=== PATIENT | female | born 1975 | race Caucasian/White ===

== ENCOUNTER 2019-11-03 09:25 | Inpatient (IN) | payer MEDICARE, MEDICAID ==
[2019-11-03] MEDS ORDERED: HYDROmorphone 1 MG/ML Syringe IM ONE (09:58)
--- NOTE | 2019-11-03 10:08 | EDM.PDOC ---
ED HPI GENERAL MEDICAL PROBLEM - General Chief Complaint: Lower Extremity Injury/Pain Stated Complaint: [facility] Time Seen by Provider: 11/03/19 09:50 Source of Information: Reports: Patient, RN Notes Reviewed - History of Present Illness INITIAL COMMENTS - FREE TEXT/NARRATIVE: 44 yr old female fell out of bed this AM, severe R distal lower leg and ankle discomfort. Cannot move leg or bear wt due to pain. No other area of known pain or injury. No chest pain or difficulty breathing. 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 She than had "intracerebral blood clot 6 yrs ago" according to mother with further weakness and congnitive decline. She lives with parents from [place]. Hx of seizures. 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: Acetaminophen Right Ankle Pain Score (Numeric/FACES): 7 - Related Data Allergies Allergy/AdvReac Type Severity Reaction Status Date / Time Sulfa (Sulfonamide Allergy Cannot Verified 11/03/19 09:32 Antibiotics) Remember Home Meds: Home Meds Aspirin [Halfprin] 325 mg PO DAILY 08/24/13 [History] Gabapentin [Neurontin] 600 mg PO BID 08/24/13 [History] busPIRone HCl [busPIRone] 15 mg PO BID 08/24/13 [History] levETIRAcetam [Keppra] 500 mg PO BID PRN 08/24/13 [History] Amantadine [Symmetrel] 100 mg PO BID 11/03/19 [History] Baclofen 5 mg PO 1200 11/03/19 [History] Baclofen 10 mg PO BID 11/03/19 [History] Calcium Carbonate/Vitamin D3 [Calcium 600-D3 20Mcg(800 Unit)] 1 tab PO DAILY 11/03/19 [History] Ergocalciferol (Vitamin D2) [Vitamin D2] 1.25 mg PO WEEKLY 11/03/19 [History] FA/Lycopene/Lut/MV,Ca,Iron,Min [Centrum] 1 tab PO DAILY 11/03/19 [History] Felodipine [Felodipine ER] 2.5 mg PO BEDTIME 11/03/19 [History] Omeprazole 20 mg PO DAILY 11/03/19 [History] Potassium Chloride 20 meq PO DAILY 11/03/19 [History] Propranolol [Inderal] 10 mg PO BID 11/03/19 [History] Past Medical History - Past Health History Medical/Surgical History: Denies Medical/Surgical History HEENT History: Reports: Other (See Below) 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 History: Reports: CVA, Seizure 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 - Past Surgical History Head Surgeries/Procedures: Reports: Craniotomy Social & Family History - Tobacco Use Smoking Status *Q: Former Smoker Used Tobacco, but Quit: Yes Month/Year Tobacco Last Used: 2009 - Recreational Drug Use Recreational Drug Use: No Review of Systems - Review of Systems Review Of Systems: See Below Constitutional: Reports: No Symptoms Eyes: Reports: No Symptoms Ears: Reports: No Symptoms Nose: Reports: No Symptoms Mouth/Throat: Reports: No Symptoms Respiratory: Denies: Shortness of Breath Cardiovascular: Denies: Chest Pain GI/Abdominal: Denies: Abdominal Pain, Vomiting Musculoskeletal: Reports: Leg Pain (severe pain RLE distal leg) Skin: Reports: Bruising (mild bruising ant ankle) ED EXAM, GENERAL - Physical Exam Exam: See Below General Appearance: Alert, Moderate Distress Throat/Mouth: Normal Inspection Head: Atraumatic Neck: Supple Respiratory/Chest: No Respiratory Distress, Lungs Clear, Normal Breath Sounds Cardiovascular: Regular Rate, Rhythm GI/Abdominal: Non-Tender Back Exam: No: CVA Tenderness (L), CVA Tenderness (R) Extremities: Leg Pain (severe tenderness distal R lower leg, mild swelling, no visible deformity) Neurological: Alert, Oriented, Other (R sided arm and leg weakness) Skin Exam: Warm, Dry, Ecchymosis (very mild bruising R ant ankle and distal leg), Other (no visible skin disruption) Course - Vital Signs Last Recorded V/S: Last Vital Signs Temp 97.0 F 11/03/19 09:29 Pulse 97 11/03/19 09:29 Resp 16 11/03/19 09:29 BP 132/78 11/03/19 09:29 Pulse Ox 98 11/03/19 09:29 - Orders/Labs/Meds Orders: Active Orders 24 hr Category Date Time Status Peripheral IV Care [RC] . DIRECTED Care 11/03/19 11:37 Active COMPREHENSIVE METABOLIC PN,CMP [CHEM] Stat Lab 11/03/19 11:47 Received INR,PT,PROTHROMBIN TIME [COAG] Stat Lab 11/03/19 11:47 Received Sodium Chloride 0.9% [Saline Flush] Med 11/03/19 11:37 Active 10 ml FLUSH ASDIRECTED PRN Peripheral IV Insertion Adult [OM.PC] Stat Oth 11/03/19 11:37 Ordered Medication Orders Sodium Chloride (Saline Flush) 10 ml FLUSH ASDIRECTED PRN PRN Reason: Keep Vein Open Meds: Medications Generic Name Dose Route Start Last Admin Trade Name Freq PRN Reason Stop Dose Admin Sodium Chloride 10 ml 11/03/19 11:37 Saline Flush FLUSH ASDIRECTED PRN Keep Vein Open Discontinued Medications Generic Name Dose Route Start Last Admin Trade Name Freq PRN Reason Stop Dose Admin Hydromorphone HCl 1 mg 11/03/19 09:58 11/03/19 10:04 Dilaudid IM 11/03/19 09:59 1 mg ONETIME ONE Administration - Re-Assessments/Exams Free Text/Narrative Re-Assessment/Exam: 11/03/19 12:[address] Castañeda, He has reviewed Xrays. He is hoping to treat this nonoperative. We have splinted RLE post long splint. He can see her in 2 to 3 days. The problem is with her prior CVA, R sided severe chronic weakness she is not going to be able to use crutches or walker. Even transferring to and from wheelchair is going to be very difficulty. Therefore we are going to admit to hospital for acute care, she will likely need NH placement. Departure - Departure Time of Disposition: 11:30 Disposition: DC/Tfer to Acute Hospital 02 Condition: Serious Clinical Impression: Unable to ambulate, History of CVA (cerebrovascular accident) Closed tibia fracture Qualifiers: Encounter type: initial encounter Tibia location: shaft Fracture morphology: spiral Fracture alignment: nondisplaced Laterality: right Qualified Code(s): S82.244A - Nondisplaced spiral fracture of shaft of right tibia, initial encounter for closed fracture Fibula fracture Qualifiers: Encounter type: initial encounter Fibula location: proximal - Discharge Information Sepsis Event Note (ED) - Evaluation Sepsis Screening Result: No Definite Risk - Focused Exam Vital Signs: Vital Signs Temp Pulse Resp BP Pulse Ox 11/03/19 09:29 97.0 F 97 16 132/78 98 ED Communication - Discussed Case With (1) Discussed Case With (1): Admitting Provider (Dr Sheridan, decision to admit at about 11:30) - My Orders Last 24 Hours: My Active Orders 11/03/19 11:37 Peripheral IV Care [RC] . DIRECTED Sodium Chloride 0.9% [Saline Flush] 10 ml FLUSH ASDIRECTED PRN Peripheral IV Insertion Adult [OM.PC] Stat 11/03/19 11:47 COMPREHENSIVE METABOLIC PN,CMP [CHEM] Stat INR,PT,PROTHROMBIN TIME [COAG] Stat - Assessment/Plan Last 24 Hours: My Active Orders 11/03/19 11:37 Peripheral IV Care [RC] . DIRECTED Sodium Chloride 0.9% [Saline Flush] 10 ml FLUSH ASDIRECTED PRN Peripheral IV Insertion Adult [OM.PC] Stat 11/03/19 11:47 COMPREHENSIVE METABOLIC PN,CMP [CHEM] Stat INR,PT,PROTHROMBIN TIME [COAG] Stat
--- NOTE | 2019-11-03 10:56 | CR ---
Right tibia and fibula: AP and lateral views of the right tibia and fibula are obtained. Fracture is noted within the distal one third diaphysis of the tibia with mild displacement. Fracture also noted within the proximal fibula with no displacement. Soft tissue swelling is noted. Impression: 1. Tibia and fibular fractures as noted above. 2. Soft tissue swelling. Diagnostic code #3 This report was dictated in MDT
[2019-11-03] MEDS ORDERED: Sodium Chloride 0.9% 10 ML Syringe FLUSH PRN (11:37)
--- NOTE | 2019-11-03 11:39 | PCM.HP.2 ---
H&P History of Present Illness - General Date of Service: 11/03/19 Admit Problem/Dx: Status Post fall and Bone Fractures Source of Information: Patient, Family, Old Records, Provider, RN Notes Reviewed History Limitations: Reports: Physical Impairment - History of Present Illness Initial Comments - Free Text/Narative: This is a 44 yo white female with past medical hx/o CVA with residual right sided weakness, brain bleed status post craniotomy 6 years ago, former smoker, seizure disorder and gait instability who comes to us from home for evaluation of a recent fall. Per patient, she fell out of bed this morning and compliant of right distal lower leg and ankle discomfort. She denies having preceding symptoms. No fever or chills. No seizure or stroke like symptoms. No signs of upper respiratory infections. Her initial work up shows a fairly unremarkable CBC. Her Tibia and fibular x-ray read as tibia and fibular fractures with soft tissue swelling. Her case was discussed with the on-call ortho. Dr. Castañeda determined she was a non surgical candidate. Patient is coming in for medical management and for possible placement. Right Ankle Pain Score (Numeric/FACES): 7 - Related Data Allergies/Adverse Reactions: Allergies Allergy/AdvReac Type Severity Reaction Status Date / Time Sulfa (Sulfonamide Allergy Cannot Verified 11/03/19 13:56 Antibiotics) Remember Home Medications: Home Meds Aspirin [Halfprin] 325 mg PO DAILY 08/24/13 [History] Gabapentin [Neurontin] 600 mg PO BID 08/24/13 [History] busPIRone HCl [busPIRone] 15 mg PO BID 08/24/13 [History] levETIRAcetam [Keppra] 500 mg PO BID PRN 08/24/13 [History] Amantadine [Symmetrel] 100 mg PO BID 11/03/19 [History] Baclofen 5 mg PO 1200 11/03/19 [History] Baclofen 10 mg PO BID 11/03/19 [History] Ergocalciferol (Vitamin D2) [Vitamin D2] 1.25 mg PO WEEKLY 11/03/19 [History] Felodipine [Felodipine ER] 2.5 mg PO BEDTIME 11/03/19 [History] Omeprazole 20 mg PO DAILY 11/03/19 [History] Propranolol [Inderal] 10 mg PO BID 07/14/20 [History] Past Medical History - Past Health History Medical/Surgical History: Denies Medical/Surgical History HEENT History: Reports: Other (See Below) 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 History: Reports: CVA, Seizure 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 - Past Surgical History Head Surgeries/Procedures: Reports: Craniotomy Social & Family History - Tobacco Use Smoking Status *Q: Former Smoker Used Tobacco, but Quit: Yes Month/Year Tobacco Last Used: 2009 - Recreational Drug Use Recreational Drug Use: No H&P Review of Systems - Review of Systems: Review Of Systems: See Below General: Denies: Fever, Chills Pulmonary: Denies: Shortness of Breath, Pleuritic Chest Pain Cardiovascular: Denies: Chest Pain, Palpitations, Dyspnea on Exertion Gastrointestinal: Denies: Abdominal Pain, Nausea, Vomiting Genitourinary: Reports: No Symptoms Musculoskeletal: Reports: Leg Pain Skin: Reports: Bruising Psychiatric: Denies: Confusion, Anxiety, Agitation, Hallucinations Neurological: Reports: Pre-Existing Deficit, Difficulty Walking, Weakness, Gait Disturbance. Denies: Dizziness, Syncope, Tingling Hematologic/Lymphatic: Reports: No Symptoms Immunologic: Reports: No Symptoms Exam - Exam Exam: See Below - Vital Signs Vital Signs: Last Vital Signs Temp 36.1 C 11/03/19 09:29 Pulse 97 11/03/19 09:29 Resp 16 11/03/19 09:29 BP 132/78 11/03/19 09:29 Pulse Ox 98 11/03/19 09:29 Weight: 119.748 kg - Exam General: Alert, Oriented, Cooperative, Other (Morbidly Obese) HEENT: Conjunctiva Clear, EACs Clear, EOMI, Hearing Intact, Nares Patent, Other (poor dentition). No: Mucosa Moist & [place] Neck: Supple, Trachea Midline Lungs: Clear to Auscultation, Normal Respiratory Effort Cardiovascular: Regular Rate, Regular Rhythm GI/Abdominal Exam: Normal Bowel Sounds, Soft, Non-Tender, No Organomegaly (Female) Exam: Deferred Rectal (Female) Exam: Deferred Back Exam: Normal Inspection, Decreased Range of Motion, Muscle Spasm Extremities: Normal Range of Motion (except right sided), Non-Tender, No Pedal Edema, Normal Capillary Refill, Limited Range of Motion (right sided extremities), Other (contracture: right arm) Peripheral Pulses: 2+: Dorsalis Pedis (L), Dorsalis Pedis (R) Skin: Warm, Dry, Intact, Ecchymosis (right ankel and distal leg) Skin Alteration Location (Drawings Not To Scale): 1 - dressed and wrapped Neurological: Other (baseline right sided weakness 2/2 remote hx/o CVA) Neuro Extensive - Mental Status: Alert, Oriented x3, Normal Mood/Affect, Normal Cognition, Memory Intact Neuro Extensive - Motor, Sensory, Reflexes: Abnormal Gait Psychiatric: Alert, Normal Affect, Normal Mood - Patient Data Result Diagrams: 11/04/19 05:07 11/04/19 05:07 Sepsis Event Note - Evaluation Sepsis Screening Result: No Definite Risk - Focused Exam Vital Signs: Vital Signs Temp Pulse Resp BP Pulse Ox 11/03/19 09:29 36.1 C 97 16 132/78 98 Date Exam was Performed: 11/04/19 Time Exam was Performed: 08:26 Problem List Initiated/Reviewed/Updated: Yes Orders Last 24hrs: Active Orders 24 hr Category Date Time Status Peripheral IV Care [RC] . DIRECTED Care 11/03/19 11:37 Active CBC WITH AUTO DIFF [HEME] Stat Lab 11/03/19 11:37 Ordered COMPREHENSIVE METABOLIC PN,CMP [CHEM] Stat Lab 11/03/19 11:37 Ordered Sodium Chloride 0.9% [Saline Flush] Med 11/03/19 11:37 Active 10 ml FLUSH ASDIRECTED PRN Peripheral IV Insertion Adult [OM.PC] Stat Oth 11/03/19 11:37 Ordered Medication Orders Sodium Chloride (Saline Flush) 10 ml FLUSH ASDIRECTED PRN PRN Reason: Keep Vein Open Assessment/Plan Comment:: This is a 44 yo white female with 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 Assessment: * Non displaced Right Tibia/Fibular Fractures 2/2 fall. She fell out of bed this AM. X-ray confirmed fractures. Cased discussed with Dr. Castañeda. He recommend to see her in 2-3 days. No seizures or stroke like activities during this incident. Plan: medical management and pain control. * Status Post Fall. Has underlying gait instability. Fall precautions * Gait Instability. Has baseline right sided weakness. Plan: fall precautions and PT/OT * Ecchymosis status post fall. Will monitor. * Morbid Obesity. 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 Chronic: Hx/o CVA with right sided weakness, hx/o brain bleed status post craniotomy, seizure disorder, vitamin d deficiency, intellectual disability, and muscle spasms. Plan: Admit to [facility]. Routine AM labs. PRN pain medications. COVID-19, Vit D level, UA, tests. Fall precautions. Head CT scan if not already done. PT/OT consult. Outpatient Ortho eval in 2-3 days; no urgent need at this point. SW/CM for placement and discharge planning. At 1900, discussed results of Head CT scan with patient. - Mortality Measure Prognosis:: Good
[2019-11-03] MEDS ORDERED: Albuterol/Ipratropium 3.0-0.5 MG/3 ML Neb Soln NEB PRN (12:25)
[2019-11-03] MEDS ORDERED: Docusate Sodium 100 MG Cap PO PRN (12:25)
[2019-11-03] MEDS ORDERED: Promethazine 12.5 MG in Sodium Chloride 0.9% 50 ML IV PRN (12:25)
[2019-11-03] MEDS ORDERED: Acetaminophen 325 MG Tab PO PRN (12:25)
[2019-11-03] MEDS ORDERED: Ondansetron 4 MG/2 ML SDV IV PRN (12:25)
[2019-11-03] MEDS ORDERED: Polyethylene Glycol 3350 Powder 17 GM Packet PO PRN (12:25)
[2019-11-03] MEDS ORDERED: levETIRAcetam 500 MG Tab PO PRN (12:29)
[2019-11-03] MEDS: HYDROmorphone 0.5 MG/0.5 ML Syringe IVPUSH PRN ×2 (13:29→13:52)
[2019-11-03] MEDS: Acetaminophen/HYDROcodone 325-5 MG Tab PO PRN (13:32)
[2019-11-03] MEDS: Ketorolac 30 MG/ML SDV IVPUSH PRN (15:28)
--- NOTE | 2019-11-03 18:23 | CT ---
Head CT Technique: Multiple axial sections through the brain were obtained. Intravenous contrast was not utilized. Findings: Large area of low density compatible with old infarct is noted within the distribution of the left middle cerebral artery involving frontal, temporal, parietal and occipital lobes. Mild areas of low density compatible with old white matter infarct noted adjacent to the right frontal horn of the lateral ventricle. Additional old infarct is noted within the medial and superior left cerebellum. No evidence of intracranial hemorrhage. No midline shift or mass-effect is seen. Bone window settings shows prior bilateral craniotomies. No acute calvarial finding is seen. Visualized mastoid sinuses and visualized paranasal sinuses show nothing acute. Impression: 1. Old infarcts as noted above. 2. Prior craniotomies. 3. No acute intracranial abnormality is appreciated. Diagnostic code #3 This report was dictated in MDT
[2019-11-03] MEDS: Amantadine 100 MG Cap PO SCH (20:10)
[2019-11-03] MEDS: Propranolol 10 MG Tab PO SCH (20:10)
[2019-11-03] MEDS: Gabapentin 600 MG Tab PO SCH (20:11)
[2019-11-03] MEDS: amLODIPine 2.5 MG Tab PO SCH (20:11)
[2019-11-03] MEDS: busPIRone 15 MG Tab PO SCH (20:11)
[2019-11-03] MEDS: Baclofen 10 MG Tab PO SCH (20:12)
[2019-11-04] MEDS: Ketorolac 30 MG/ML SDV IVPUSH PRN ×3 (02:54→17:30)
[2019-11-04] MEDS: Acetaminophen/HYDROcodone 325-5 MG Tab PO PRN ×2 (05:39→13:26)
--- NOTE | 2019-11-04 07:08 | PCM.PN ---
- General Info Date of Service: 11/04/19 Admission Dx/Problem (Free Text): Status Post fall and Bone Fractures Subjective Update: 11/04/19: No overnight or acute issues. Her pain is controlled. Her vitals are stable. No seizures. Functional Status: Reports: Pain Controlled. Denies: Ambulating - Review of Systems General: Denies: Fever, Chills HEENT: Reports: No Symptoms Pulmonary: Denies: Shortness of Breath, Cough Cardiovascular: Denies: Chest Pain, Palpitations, Dyspnea on Exertion Gastrointestinal: Denies: Abdominal Pain, Nausea Genitourinary: Reports: No Symptoms Musculoskeletal: Reports: Leg Pain Skin: Reports: No Symptoms Neurological: Denies: Confusion Psychiatric: Denies: Depression, Anxiety, Agitation, Hallucinations - Patient Data Vitals - Most Recent: Last Vital Signs Temp 36.6 C 11/04/19 02:58 Pulse 78 11/04/19 02:58 Resp 20 11/04/19 02:58 BP 143/76 H 11/04/19 02:58 Pulse Ox 93 L 11/04/19 02:58 Weight - Most Recent: 110.042 kg I&O - Last 24 Hours: Intake & Output 11/03/19 11/04/19 11/04/19 22:59 06:59 14:59 Intake Total 100 200 Output Total 600 Balance 100 -400 Lab Results Last 24 Hours: Laboratory Results - last 24 hr 11/03/19 11/03/19 11/03/19 Range/Units 11:47 11:47 11:47 WBC 9.09 (3.98-10.04) K/mm3 RBC 4.94 (3.98-5.22) M/mm3 Hgb 14.7 (11.2-15.7) gm/dl Hct 43.9 (34.1-44.9) % MCV 88.9 (79.4-94.8) fl MCH 29.8 (25.6-32.2) pg MCHC 33.5 (32.2-35.5) g/dl RDW Std Deviation 41.8 (36.4-46.3) fL Plt Count 205 (182-369) K/mm3 MPV 10.4 (9.4-12.3) fl Neut % (Auto) 80.0 H (34.0-71.1) % Lymph % (Auto) 11.0 L (19.3-51.7) % Garrett % (Auto) 7.7 (4.7-12.5) % Eos % (Auto) 1.1 (0.7-5.8) Baso % (Auto) 0.1 (0.1-1.2) % Neut # (Auto) 7.27 H (1.56-6.13) K/mm3 Lymph # (Auto) 1.00 L (1.18-3.74) K/mm3 Garrett # (Auto) 0.70 H (0.24-0.36) K/mm3 Eos # (Auto) 0.10 (0.04-0.36) K/mm3 Baso # (Auto) 0.01 (0.01-0.08) K/mm3 PT 10.9 (9.7-12.0) SECONDS INR 1.00 Sodium 143 (136-145) mEq/L Potassium 3.8 (3.5-5.1) mEq/L Chloride 106 (98-107) mEq/L Carbon Dioxide 28 (21-32) mEq/L Anion Gap 12.8 (5-15) BUN 13 (7-18) mg/dL Creatinine 1.1 H (0.55-1.02) mg/dL Est Cr Clr Drug Dosing TNP Estimated GFR (MDRD) 53 (>60) mL/min BUN/Creatinine Ratio 11.8 L (14-18) Glucose 120 H (74-106) mg/dL Calcium 9.2 (8.5-10.1) mg/dL Total Bilirubin 1.2 H (0.2-1.0) mg/dL AST 72 H (15-37) U/L ALT 55 (14-59) U/L Alkaline Phosphatase 154 H (46-116) U/L Creatine Kinase (26-192) U/L Total Protein 7.4 (6.4-8.2) g/dl Albumin 3.5 (3.4-5.0) g/dl Globulin 3.9 gm/dL Albumin/Globulin Ratio 0.9 L (1-2) Vitamin D 25-Hydroxy (30.0-100.0) ng/ml HCG, Qual (NEGATIVE) Urine Color (Yellow) Urine Appearance (Clear) Urine pH (5.0-8.0) Ur Specific [place] (1.005-1.030) Urine Protein (Negative) Urine Glucose (UA) (Negative) Urine Ketones (Negative) Urine Occult Blood (Negative) Urine Nitrite (Negative) Urine Bilirubin (Negative) Urine Urobilinogen (0.2-1.0) Ur Leukocyte Esterase (Negative) Urine RBC (0-5) /hpf Urine WBC (0-5) /hpf Ur Squamous Epith Cells (0-5) /hpf Urine Bacteria (FEW) /hpf Urine Mucus (FEW) /hpf COVID-19 ([facility]) (NEGATIVE) 11/03/19 11/03/19 11/03/19 Range/Units 11:47 11:47 11:47 WBC (3.98-10.04) K/mm3 RBC (3.98-5.22) M/mm3 Hgb (11.2-15.7) gm/dl Hct (34.1-44.9) % MCV (79.4-94.8) fl MCH (25.6-32.2) pg MCHC (32.2-35.5) g/dl RDW Std Deviation (36.4-46.3) fL Plt Count (182-369) K/mm3 MPV (9.4-12.3) fl Neut % (Auto) (34.0-71.1) % Lymph % (Auto) (19.3-51.7) % [place] % (Auto) (4.7-12.5) % Eos % (Auto) (0.7-5.8) Baso % (Auto) (0.1-1.2) % Neut # (Auto) (1.56-6.13) K/mm3 Lymph # (Auto) (1.18-3.74) K/mm3 [place] # (Auto) (0.24-0.36) K/mm3 Eos # (Auto) (0.04-0.36) K/mm3 Baso # (Auto) (0.01-0.08) K/mm3 PT (9.7-12.0) SECONDS INR Sodium (136-145) mEq/L Potassium (3.5-5.1) mEq/L Chloride (98-107) mEq/L Carbon Dioxide (21-32) mEq/L Anion Gap (5-15) BUN (7-18) mg/dL Creatinine (0.55-1.02) mg/dL Est Cr Clr Drug Dosing Estimated GFR (MDRD) (>60) mL/min BUN/Creatinine Ratio (14-18) Glucose (74-106) mg/dL Calcium (8.5-10.1) mg/dL Total Bilirubin (0.2-1.0) mg/dL AST (15-37) U/L ALT (14-59) U/L Alkaline Phosphatase (46-116) U/L Creatine Kinase 177 (26-192) U/L Total Protein (6.4-8.2) g/dl Albumin (3.4-5.0) g/dl Globulin gm/dL Albumin/Globulin Ratio (1-2) Vitamin D 25-Hydroxy 36.8 (30.0-100.0) ng/ml HCG, Qual Negative (NEGATIVE) Urine Color (Yellow) Urine Appearance (Clear) Urine pH (5.0-8.0) Ur Specific [place] (1.005-1.030) Urine Protein (Negative) Urine Glucose (UA) (Negative) Urine Ketones (Negative) Urine Occult Blood (Negative) Urine Nitrite (Negative) Urine Bilirubin (Negative) Urine Urobilinogen (0.2-1.0) Ur Leukocyte Esterase (Negative) Urine RBC (0-5) /hpf Urine WBC (0-5) /hpf Ur Squamous Epith Cells (0-5) /hpf Urine Bacteria (FEW) /hpf Urine Mucus (FEW) /hpf COVID-19 ([facility]) (NEGATIVE) 11/03/19 11/03/19 11/04/19 Range/Units 15:48 15:48 05:07 WBC 6.40 (3.98-10.04) K/mm3 RBC 4.45 (3.98-5.22) M/mm3 Hgb 13.6 (11.2-15.7) gm/dl Hct 38.9 (34.1-44.9) % MCV 87.4 (79.4-94.8) fl MCH 30.6 (25.6-32.2) pg MCHC 35.0 (32.2-35.5) g/dl RDW Std Deviation 40.0 (36.4-46.3) fL Plt Count 175 L (182-369) K/mm3 MPV 10.6 (9.4-12.3) fl Neut % (Auto) 66.5 (34.0-71.1) % Lymph % (Auto) 20.0 (19.3-51.7) % Garrett % (Auto) 8.1 (4.7-12.5) % Eos % (Auto) 5.2 (0.7-5.8) Baso % (Auto) 0.2 (0.1-1.2) % Neut # (Auto) 4.26 (1.56-6.13) K/mm3 Lymph # (Auto) 1.28 (1.18-3.74) K/mm3 [place] # (Auto) 0.52 H (0.24-0.36) K/mm3 Eos # (Auto) 0.33 (0.04-0.36) K/mm3 Baso # (Auto) 0.01 (0.01-0.08) K/mm3 PT (9.7-12.0) SECONDS INR Sodium (136-145) mEq/L Potassium (3.5-5.1) mEq/L Chloride (98-107) mEq/L Carbon Dioxide (21-32) mEq/L Anion Gap (5-15) BUN (7-18) mg/dL Creatinine (0.55-1.02) mg/dL Est Cr Clr Drug Dosing Estimated GFR (MDRD) (>60) mL/min BUN/Creatinine Ratio (14-18) Glucose (74-106) mg/dL Calcium (8.5-10.1) mg/dL Total Bilirubin (0.2-1.0) mg/dL AST (15-37) U/L ALT (14-59) U/L Alkaline Phosphatase (46-116) U/L Creatine Kinase (26-192) U/L Total Protein (6.4-8.2) g/dl Albumin (3.4-5.0) g/dl Globulin gm/dL Albumin/Globulin Ratio (1-2) Vitamin D 25-Hydroxy (30.0-100.0) ng/ml HCG, Qual (NEGATIVE) Urine Color Yellow (Yellow) Urine Appearance Clear (Clear) Urine pH 5.5 (5.0-8.0) Ur Specific [place] > or = 1.030 (1.005-1.030) Urine Protein Negative (Negative) Urine Glucose (UA) Negative (Negative) Urine Ketones Negative (Negative) Urine Occult Blood Negative (Negative) Urine Nitrite Negative (Negative) Urine Bilirubin Negative (Negative) Urine Urobilinogen 1.0 (0.2-1.0) Ur Leukocyte Esterase Negative (Negative) Urine RBC 0-5 (0-5) /hpf Urine WBC 0-5 (0-5) /hpf Ur Squamous Epith Cells 0-5 (0-5) /hpf Urine Bacteria Few (FEW) /hpf Urine Mucus Moderate H (FEW) /hpf COVID-19 ([facility]) Negative (NEGATIVE) 11/04/19 Range/Units 05:07 WBC (3.98-10.04) K/mm3 RBC (3.98-5.22) M/mm3 Hgb (11.2-15.7) gm/dl Hct (34.1-44.9) % MCV (79.4-94.8) fl MCH (25.6-32.2) pg MCHC (32.2-35.5) g/dl RDW Std Deviation (36.4-46.3) fL Plt Count (182-369) K/mm3 MPV (9.4-12.3) fl Neut % (Auto) (34.0-71.1) % Lymph % (Auto) (19.3-51.7) % Garrett % (Auto) (4.7-12.5) % Eos % (Auto) (0.7-5.8) Baso % (Auto) (0.1-1.2) % Neut # (Auto) (1.56-6.13) K/mm3 Lymph # (Auto) (1.18-3.74) K/mm3 Garrett # (Auto) (0.24-0.36) K/mm3 Eos # (Auto) (0.04-0.36) K/mm3 Baso # (Auto) (0.01-0.08) K/mm3 PT (9.7-12.0) SECONDS INR Sodium 142 (136-145) mEq/L Potassium 3.5 (3.5-5.1) mEq/L Chloride 106 (98-107) mEq/L Carbon Dioxide 27 (21-32) mEq/L Anion Gap 12.5 (5-15) BUN 9 (7-18) mg/dL Creatinine 0.8 (0.55-1.02) mg/dL Est Cr Clr Drug Dosing 75.88 Estimated GFR (MDRD) > 60 (>60) mL/min BUN/Creatinine Ratio 11.3 L (14-18) Glucose 100 (74-106) mg/dL Calcium 8.8 (8.5-10.1) mg/dL Total Bilirubin (0.2-1.0) mg/dL AST (15-37) U/L ALT (14-59) U/L Alkaline Phosphatase (46-116) U/L Creatine Kinase (26-192) U/L Total Protein (6.4-8.2) g/dl Albumin (3.4-5.0) g/dl Globulin gm/dL Albumin/Globulin Ratio (1-2) Vitamin D 25-Hydroxy (30.0-100.0) ng/ml HCG, Qual (NEGATIVE) Urine Color (Yellow) Urine Appearance (Clear) Urine pH (5.0-8.0) Ur Specific [place] (1.005-1.030) Urine Protein (Negative) Urine Glucose (UA) (Negative) Urine Ketones (Negative) Urine Occult Blood (Negative) Urine Nitrite (Negative) Urine Bilirubin (Negative) Urine Urobilinogen (0.2-1.0) Ur Leukocyte Esterase (Negative) Urine RBC (0-5) /hpf Urine WBC (0-5) /hpf Ur Squamous Epith Cells (0-5) /hpf Urine Bacteria (FEW) /hpf Urine Mucus (FEW) /hpf COVID-19 ([facility]) (NEGATIVE) Med Orders - Current: Current Medications Acetaminophen (Tylenol) 650 mg PO Q4H PRN PRN Reason: Pain (Mild 1-3)/fever Hydrocodone Bitart/Acetaminophen ([place] 325-5 Mg) 1 tab PO Q4H PRN PRN Reason: Pain (moderate 4-6) Last Admin: 11/04/19 05:39 Dose: 1 tab Documented by: Albuterol/Ipratropium (Duoneb 3.0-0.5 Mg/3 Ml) 3 ml NEB Q4H PRN PRN Reason: Shortness Of Breath/wheezing Amantadine HCl (Symmetrel) 100 mg PO BID [facility] Last Admin: 11/03/19 20:10 Dose: 100 mg Documented by: Amlodipine Besylate (Norvasc) 2.5 mg PO BEDTIME [facility] Last Admin: 11/03/19 20:11 Dose: 2.5 mg Documented by: Aspirin (Ecotrin) 325 mg PO DAILY [facility] Baclofen (Lioresal) 5 mg PO DAILY@1200 [facility] Baclofen (Lioresal) 10 mg PO BID [facility] Last Admin: 11/03/19 20:12 Dose: 10 mg Documented by: Buspirone HCl (Buspar) 15 mg PO BID [facility] Last Admin: 11/03/19 20:11 Dose: 15 mg Documented by: Calcium Carbonate (Calcium Carbonate/Vitamin D 600 Mg-200 Unit) 1 tab PO DAILY [facility] Docusate Sodium (Colace) 100 mg PO BID PRN PRN Reason: Constipation Gabapentin (Neurontin) 600 mg PO BID [facility] Last Admin: 11/03/19 20:11 Dose: 600 mg Documented by: Hydromorphone HCl (Dilaudid) 0.5 mg IVPUSH Q2H PRN PRN Reason: Pain (severe 7-10) Last Admin: 11/03/19 13:52 Dose: 0.25 mg Documented by: Promethazine HCl 12.5 mg/ (Sodium Chloride) 50.5 mls @ 100 mls/hr IV Q6H PRN PRN Reason: Nausea/Vomiting Ketorolac Tromethamine (Toradol) 30 mg IVPUSH Q6H PRN PRN Reason: Pain (moderate 4-6) Last Admin: 11/04/19 02:54 Dose: 30 mg Documented by: Levetiracetam (Keppra) 500 mg PO BID PRN PRN Reason: Seizures Ondansetron HCl (Zofran) 4 mg IV Q6H PRN PRN Reason: Nausea/Vomiting Pantoprazole Sodium (Protonix) 40 mg PO DAILY [facility] Polyethylene Glycol (Miralax) 17 gm PO DAILY PRN PRN Reason: Constipation Potassium Chloride (Klor-Con M20) 20 meq PO DAILY [facility] Propranolol HCl (Inderal) 10 mg PO BID [facility] Last Admin: 11/03/19 20:10 Dose: 10 mg Documented by: Senna/Docusate Sodium (Senna Plus) 1 tab PO BID PRN PRN Reason: Constipation Sodium Chloride (Saline Flush) 10 ml FLUSH ASDIRECTED PRN PRN Reason: Keep Vein Open Discontinued Medications Hydromorphone HCl (Dilaudid) 1 mg IM ONETIME ONE Stop: 11/03/19 09:59 Last Admin: 11/03/19 10:04 Dose: 1 mg Documented by: - Exam General: Alert, Oriented, Cooperative HEENT: Pupils Equal, Pupils Reactive, EOMI, Mucous Membr. Moist/[place] Neck: Supple Lungs: Clear to Auscultation, Normal Respiratory Effort Cardiovascular: Regular Rate, Regular Rhythm GI/Abdominal Exam: Normal Bowel Sounds, Soft, Non-Tender, No Organomegaly, No Distention, Other (Obese) (Female) Exam: Deferred Back Exam: Normal Inspection, Decreased Range of Motion Extremities: Normal Inspection, Other (contracture: right arm; right leg: dres sed and wrapped-circulation and sensation intact) Peripheral Pulses: 2+: Dorsalis Pedis (L), Dorsalis Pedis (R) Skin: Warm, Dry, Intact Neurological: No New Focal Deficit, Other (has baseline right sided weakness and intellectual disability). No: Normal Gait Psy/Mental Status: Alert, Normal Affect, Normal Mood Sepsis Event Note - Evaluation Sepsis Screening Result: No Definite Risk - Focused Exam Vital Signs: Vital Signs Temp Pulse Resp BP Pulse Ox 11/04/19 02:58 36.6 C 78 20 143/76 H 93 L 11/03/19 22:51 36.8 C 74 18 120/83 100 11/03/19 20:11 116/80 11/03/19 20:10 87 116/80 11/03/19 20:08 36.5 C 87 20 116/80 97 Date Exam was Performed: 11/05/19 Time Exam was Performed: 08:44 - Problem List Review Problem List Initiated/Reviewed/Updated: Yes - My Orders Last 24 Hours: My Active Orders 11/03/19 Lunch Regular Diet [DIET] 11/03/19 12:25 Antiembolic Devices [RC] BID Height and Weight [RC] 04 Intake and Output [RC] 04,16 Oxygen Therapy [RC] PRN Up With Assistance [RC] ASDIRECTED VTE/DVT Education [RC] BID Vital Signs [RC] Q4HR Consult to Case Management/Cardiology Teacher [CONS] Routine OT Evaluation and Treatment [CONS] Routine PT Evaluation and Treatment [CONS] Routine Acetaminophen [Tylenol] 650 mg PO Q4H PRN Acetaminophen/HYDROcodone [[place]enderson 325-5 MG] 1 tab PO Q4H PRN Albuterol/Ipratropium [DuoNeb 3.0-0.5 MG/3 ML] 3 ml NEB Q4H PRN Docusate Sodium [Colace] 100 mg PO BID PRN Docusate Sodium/Sennosides [Senna Plus] 1 tab PO BID PRN HYDROmorphone [Dilaudid] 0.5 mg IVPUSH Q2H PRN Ketorolac [Toradol] 30 mg IVPUSH Q6H PRN Ondansetron [Zofran] 4 mg IV Q6H PRN Promethazine [Phenergan] 12.5 mg Sodium Chloride 0.9% [Normal Saline] 50 ml IV Q6H polyethylene glycoL 3350 [MiraLAX] 17 gm PO DAILY PRN Sequential Compression Device [OM.PC] Per Unit Routine Resuscitation Status Routine 11/03/19 12:26 RT Aerosol Therapy [RC] ASDIRECTED 11/03/19 12:29 levETIRAcetam [Keppra] 500 mg PO BID PRN 11/03/19 13:33 Consult to Dietary [Consult to Horseradish Maker] [CONS] Routine 11/03/19 21:00 Amantadine [Symmetrel] 100 mg PO BID Baclofen [Lioresal] 10 mg PO BID Gabapentin [Neurontin] 600 mg PO BID Propranolol [Inderal] 10 mg PO BID amLODIPine [Norvasc] 2.5 mg PO BEDTIME busPIRone [Buspar] 15 mg PO BID 11/04/19 09:00 Aspirin [Ecotrin] 325 mg PO DAILY Calcium Carbonate/Vitamin D3 [Calcium Carbonate/Vitamin D 600 MG-200 Unit] 1 tab PO DAILY Pantoprazole [ProTONIX] 40 mg PO DAILY Potassium Chloride [Klor-Con M20] 20 meq PO DAILY 11/04/19 12:00 Baclofen [Lioresal] 5 mg PO DAILY@1200 11/05/19 05:11 BASIC METABOLIC PANEL,BMP [CHEM] AM CBC WITH AUTO DIFF [HEME] AM 11/06/19 05:11 BASIC METABOLIC PANEL,BMP [CHEM] AM CBC WITH AUTO DIFF [HEME] AM - Plan Plan:: This is a 44 yo white female with 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 Assessment: * Non displaced Right Tibia/Fibular Fractures 2/2 fall. She fell out of bed this AM. X-ray confirmed fractures. Cased discussed with Dr. Castañeda. He recommend to see her in 2-3 days. No seizures or stroke like activities during this incident. Pain is controlled. * Status Post Fall. Has underlying gait instability. Fall precautions * Gait Instability. Has baseline right sided weakness. Plan: fall precautions and PT/OT * Ecchymosis status post fall. Will monitor. * Morbid Obesity. Horseradish Maker consult for weight management. Chronic: Hx/o CVA with right sided weakness, hx/o brain bleed status post craniotomy, seizure disorder, vitamin d deficiency, intellectual disability, and muscle spasms. Plan: Continue with medical management and pain control. PRN pain medications. COVID-19 screening, Vit D level, UA and tests were all normal. Fall precautions. Head CT scan was negative for acute intra-cranial findings. PT/OT consult. Outpatient Ortho evaluation in 2-3 days. Discharge pending placement.
[2019-11-04] MEDS: Gabapentin 600 MG Tab PO SCH ×2 (09:26→21:27)
[2019-11-04] MEDS: busPIRone 15 MG Tab PO SCH ×2 (09:26→21:27)
[2019-11-04] MEDS: Calcium Carbonate/Vitamin D3 600 MG-200 Units Tab PO SCH (09:27)
[2019-11-04] MEDS: Baclofen 10 MG Tab PO SCH ×3 (09:27→21:28)
[2019-11-04] MEDS: Pantoprazole 40 MG Tab.CR PO SCH (09:27)
[2019-11-04] MEDS: Potassium Chloride 20 MEQ Tab.ER PO SCH (09:31)
[2019-11-04] MEDS: Aspirin 325 MG Tab.EC PO SCH (09:31)
[2019-11-04] MEDS: Amantadine 100 MG Cap PO SCH ×2 (09:32→21:26)
[2019-11-04] MEDS: Propranolol 10 MG Tab PO SCH ×2 (09:34→21:27)
[2019-11-04] MEDS: levETIRAcetam 500 MG Tab PO SCH ×2 (12:04→21:27)
[2019-11-04] MEDS: amLODIPine 2.5 MG Tab PO SCH (21:28)
[2019-11-04] MEDS: Nystatin Topical Powder 15 GM Bottle TOP SCH (21:32)
[2019-11-05] MEDS: Ketorolac 30 MG/ML SDV IVPUSH PRN ×2 (01:26→08:33)
[2019-11-05] MEDS: Acetaminophen/HYDROcodone 325-5 MG Tab PO PRN ×3 (03:41→23:24)
[2019-11-05] MEDS: HYDROmorphone 0.5 MG/0.5 ML Syringe IVPUSH PRN ×2 (05:59→08:47)
--- NOTE | 2019-11-05 07:02 | PCM.PN ---
- General Info Date of Service: 11/05/19 Admission Dx/Problem (Free Text): Status Post fall and Bone Fractures Subjective Update: 11/05/19: No overnight issues. However she reported really bad pain on her leg while sitting up on a chair. She rated her pain at 9/10. Otherwise she had no other complaints. Her vitals were stable. 11/04/19: No overnight or acute issues. Her pain is controlled. Her vitals are stable. No seizures. Functional Status: Reports: Pain Controlled, Tolerating Diet. Denies: Ambulating - Review of Systems General: Denies: Fever, Chills HEENT: Reports: No Symptoms Pulmonary: Denies: Shortness of Breath Cardiovascular: Denies: Chest Pain, Dyspnea on Exertion, Lightheadedness Gastrointestinal: Denies: Abdominal Pain, Nausea, Vomiting Genitourinary: Reports: No Symptoms Musculoskeletal: Reports: Leg Pain Neurological: Reports: Gait Disturbance Psychiatric: Denies: Depression, Anxiety, Agitation, Hallucinations - Patient Data Vitals - Most Recent: Last Vital Signs Temp 37.2 C 11/05/19 03:44 Pulse 102 H 11/05/19 03:44 Resp 18 11/05/19 03:44 BP 122/51 L 11/05/19 03:44 Pulse Ox 97 11/05/19 03:44 Weight - Most Recent: 109.769 kg I&O - Last 24 Hours: Intake & Output 11/04/19 11/05/19 11/05/19 22:59 06:59 14:59 Intake Total 450 150 Output Total 250 230 Balance 200 -80 Lab Results Last 24 Hours: Laboratory Results - last 24 hr 11/05/19 11/05/19 Range/Units 04:45 04:45 WBC 5.59 (3.98-10.04) K/mm3 RBC 4.43 (3.98-5.22) M/mm3 Hgb 13.2 (11.2-15.7) gm/dl Hct 39.7 (34.1-44.9) % MCV 89.6 (79.4-94.8) fl MCH 29.8 (25.6-32.2) pg MCHC 33.2 (32.2-35.5) g/dl RDW Std Deviation 42.6 (36.4-46.3) fL Plt Count 164 L (182-369) K/mm3 MPV 10.6 (9.4-12.3) fl Neut % (Auto) 73.6 H (34.0-71.1) % Lymph % (Auto) 15.4 L (19.3-51.7) % [place] % (Auto) 6.1 (4.7-12.5) % Eos % (Auto) 4.3 (0.7-5.8) Baso % (Auto) 0.2 (0.1-1.2) % Neut # (Auto) 4.12 (1.56-6.13) K/mm3 Lymph # (Auto) 0.86 L (1.18-3.74) K/mm3 [place] # (Auto) 0.34 (0.24-0.36) K/mm3 Eos # (Auto) 0.24 (0.04-0.36) K/mm3 Baso # (Auto) 0.01 (0.01-0.08) K/mm3 Sodium 143 (136-145) mEq/L Potassium 3.6 (3.5-5.1) mEq/L Chloride 108 H (98-107) mEq/L Carbon Dioxide 27 (21-32) mEq/L Anion Gap 11.6 (5-15) BUN 11 (7-18) mg/dL Creatinine 0.9 (0.55-1.02) mg/dL Est Cr Clr Drug Dosing 67.45 mL/min Estimated GFR (MDRD) > 60 (>60) mL/min BUN/Creatinine Ratio 12.2 L (14-18) Glucose 98 (74-106) mg/dL Calcium 8.7 (8.5-10.1) mg/dL Med Orders - Current: Current Medications Acetaminophen (Tylenol) 650 mg PO Q4H PRN PRN Reason: Pain (Mild 1-3)/fever Last Admin: 11/04/19 15:38 Dose: 650 mg Documented by: Hydrocodone Bitart/Acetaminophen ([place] 325-5 Mg) 1 tab PO Q4H PRN PRN Reason: Pain (moderate 4-6) Last Admin: 11/05/19 03:41 Dose: 1 tab Documented by: Albuterol/Ipratropium (Duoneb 3.0-0.5 Mg/3 Ml) 3 ml NEB Q4H PRN PRN Reason: Shortness Of Breath/wheezing Amantadine HCl (Symmetrel) 100 mg PO BID [facility] Last Admin: 11/04/19 21:26 Dose: 100 mg Documented by: Amlodipine Besylate (Norvasc) 2.5 mg PO BEDTIME [facility] Last Admin: 11/04/19 21:28 Dose: 2.5 mg Documented by: Aspirin (Ecotrin) 325 mg PO DAILY [facility] Last Admin: 11/04/19 09:31 Dose: 325 mg Documented by: Baclofen (Lioresal) 5 mg PO DAILY@1200 [facility] Last Admin: 11/04/19 12:05 Dose: 5 mg Documented by: Baclofen (Lioresal) 10 mg PO BID [facility] Last Admin: 11/04/19 21:28 Dose: 10 mg Documented by: Buspirone HCl (Buspar) 15 mg PO BID [facility] Last Admin: 11/04/19 21:27 Dose: 15 mg Documented by: Calcium Carbonate (Calcium Carbonate/Vitamin D 600 Mg-200 Unit) 1 tab PO DAILY [facility] Last Admin: 11/04/19 09:27 Dose: 1 tab Documented by: Docusate Sodium (Colace) 100 mg PO BID PRN PRN Reason: Constipation Gabapentin (Neurontin) 600 mg PO BID [facility] Last Admin: 11/04/19 21:27 Dose: 600 mg Documented by: Hydromorphone HCl (Dilaudid) 0.5 mg IVPUSH Q2H PRN PRN Reason: Pain (severe 7-10) Last Admin: 11/05/19 05:59 Dose: 0.5 mg Documented by: Promethazine HCl 12.5 mg/ (Sodium Chloride) 50.5 mls @ 100 mls/hr IV Q6H PRN PRN Reason: Nausea/Vomiting Ketorolac Tromethamine (Toradol) 30 mg IVPUSH Q6H PRN PRN Reason: Pain (moderate 4-6) Last Admin: 11/05/19 01:26 Dose: 30 mg Documented by: Levetiracetam (Keppra) 500 mg PO BID [facility] Last Admin: 11/04/19 21:27 Dose: 500 mg Documented by: Nystatin (Nystop) 0 gm TOP BID [facility] Last Admin: 11/04/19 21:32 Dose: 1 applic Documented by: Ondansetron HCl (Zofran) 4 mg IV Q6H PRN PRN Reason: Nausea/Vomiting Pantoprazole Sodium (Protonix) 40 mg PO DAILY [facility] Last Admin: 11/04/19 09:27 Dose: 40 mg Documented by: Polyethylene Glycol (Miralax) 17 gm PO DAILY PRN PRN Reason: Constipation Potassium Chloride (Klor-Con M20) 20 meq PO DAILY [facility] Last Admin: 11/04/19 09:31 Dose: 20 meq Documented by: Propranolol HCl (Inderal) 10 mg PO BID [facility] Last Admin: 11/04/19 21:27 Dose: 10 mg Documented by: Senna/Docusate Sodium (Senna Plus) 1 tab PO BID PRN PRN Reason: Constipation Sodium Chloride (Saline Flush) 10 ml FLUSH ASDIRECTED PRN PRN Reason: Keep Vein Open Discontinued Medications Hydromorphone HCl (Dilaudid) 1 mg IM ONETIME ONE Stop: 11/03/19 09:59 Last Admin: 11/03/19 10:04 Dose: 1 mg Documented by: Levetiracetam (Keppra) 500 mg PO BID PRN PRN Reason: Seizures - Exam General: Alert, Oriented, Cooperative, Mild Distress HEENT: Pupils Equal, Pupils Reactive, EOMI, Mucous Membr. Moist/[place] Neck: Supple Lungs: Clear to Auscultation, Normal Respiratory Effort Cardiovascular: Regular Rate, Regular Rhythm GI/Abdominal Exam: Normal Bowel Sounds, Soft, Non-Tender, No Organomegaly, No Distention, Other (Obese) (Female) Exam: Deferred Back Exam: Normal Inspection, Decreased Range of Motion Extremities: Normal Inspection, Normal Range of Motion, Non-Tender, No Pedal Edema, Limited Range of Motion (right leg), Other (tight leg: dressed and wrapped) Peripheral Pulses: 2+: Dorsalis Pedis (L), Dorsalis Pedis (R) Skin: Warm, Dry, Intact Neurological: No New Focal Deficit Psy/Mental Status: Alert, Normal Affect, Normal Mood Sepsis Event Note - Evaluation Sepsis Screening Result: No Definite Risk - Focused Exam Vital Signs: Vital Signs Temp Pulse Resp BP Pulse Ox 11/05/19 03:44 37.2 C 102 H 18 122/51 L 97 11/05/19 01:04 36.4 C 86 20 113/75 95 11/04/19 21:28 140/41 L 11/04/19 21:27 89 140/41 L 11/04/19 21:25 36.6 C 89 18 140/41 L 99 Date Exam was Performed: 11/05/19 Time Exam was Performed: 19:26 - Problem List Review Problem List Initiated/Reviewed/Updated: Yes - My Orders Last 24 Hours: My Active Orders 11/04/19 09:00 Aspirin [Ecotrin] 325 mg PO DAILY Calcium Carbonate/Vitamin D3 [Calcium Carbonate/Vitamin D 600 MG-200 Unit] 1 tab PO DAILY Pantoprazole [ProTONIX] 40 mg PO DAILY Potassium Chloride [Klor-Con M20] 20 meq PO DAILY 11/04/19 11:15 levETIRAcetam [Keppra] 500 mg PO BID 11/04/19 12:00 Baclofen [Lioresal] 5 mg PO DAILY@1200 11/04/19 21:00 Nystatin [Nystop] 0 gm TOP BID 11/06/19 05:11 BASIC METABOLIC PANEL,BMP [CHEM] AM CBC WITH AUTO DIFF [HEME] AM - Plan Plan:: This is a 44 yo white female with 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 Assessment: * Non displaced Right Tibia/Fibular Fractures 2/2 fall. She fell out of bed this AM. X-ray confirmed fractures. Cased discussed with Dr. Castañeda by ED provider. He recommend to see her in 2-3 days. No seizures or stroke like activities during this incident. Continue medical management and pain control. Ortho may possibly see her today for initial evaluation. * Status Post Fall. Has underlying gait instability. Fall precautions * Gait Instability. Has baseline right sided weakness. Plan: fall precautions and PT/OT * Ecchymosis status post fall. Will monitor. * Morbid Obesity. [employer] consult for weight management. Chronic: Hx/o CVA with right sided weakness, hx/o brain bleed status post crani otomy, seizure disorder, vitamin d deficiency, intellectual disability, and muscle spasms. Plan: Continue current treatment. PT/OT follow up. Ortho eval, if services available today. Possible discharge tomorrow.
[2019-11-05] MEDS: Aspirin 325 MG Tab.EC PO SCH (09:39)
[2019-11-05] MEDS: Calcium Carbonate/Vitamin D3 600 MG-200 Units Tab PO SCH (09:39)
[2019-11-05] MEDS: Pantoprazole 40 MG Tab.CR PO SCH (09:39)
[2019-11-05] MEDS: Propranolol 10 MG Tab PO SCH ×2 (09:39→20:16)
[2019-11-05] MEDS: levETIRAcetam 500 MG Tab PO SCH ×2 (09:39→20:15)
[2019-11-05] MEDS: busPIRone 15 MG Tab PO SCH ×2 (09:41→20:15)
[2019-11-05] MEDS: Potassium Chloride 20 MEQ Tab.ER PO SCH (09:41)
[2019-11-05] MEDS: Gabapentin 600 MG Tab PO SCH ×2 (09:41→20:15)
[2019-11-05] MEDS: Nystatin Topical Powder 15 GM Bottle TOP SCH ×2 (09:42→20:15)
[2019-11-05] MEDS: Baclofen 10 MG Tab PO SCH ×3 (10:40→20:16)
[2019-11-05] MEDS: Amantadine 100 MG Cap PO SCH ×2 (10:52→20:16)
--- NOTE | 2019-11-05 12:58 | PCM.PREANE ---
Preanesthetic Assessment - Procedure Proposed Procedure: Close reduction and casting of the right distal tibia fracture - Anesthesia/Transfusion/Family Hx Anesthesia History: No Prior Anesthesia Type of Transfusion Reactions: Reports: Anaphylaxis Intubation History: Unknown - Review of Systems General: No Symptoms Pulmonary: No Symptoms Cardiovascular: No Symptoms Gastrointestinal: No Symptoms Neurological: Pre-Existing Deficit, Trouble Speaking, Difficulty Walking (right side hemiparesis), Weakness (Rt side hemiparesis) Other: Reports: None - Physical Assessment NPO Status Date: 11/05/19 NPO Status Time: 23:00 Vital Signs: Last Vital Signs Temp 98.1 F 11/05/19 11:08 Pulse 70 11/05/19 11:17 Resp 18 11/05/19 11:08 BP 136/98 H 11/05/19 11:08 Pulse Ox 95 11/05/19 11:17 Vitals this AM 129/69, 87, 95% on 0.5 L O2 Height: 1.63 m Weight: 109.769 kg ASA Class: 3 Mental Status: Alert & Oriented x3 (slow to respond) Airway Class: Mallampati = 3 Thyro-Mental Finger Breadths: 3 Mouth Opening Finger Breadths: 3 ROM/Head Extension: Limited/Partial Lungs: Normal Respiratory Effort, Decreased Breath Sounds Cardiovascular: Regular Rate, Regular Rhythm - Lab Values: Laboratory Last Values WBC 5.59 K/mm3 (3.98-10.04) 11/05/19 04:45 RBC 4.43 M/mm3 (3.98-5.22) 11/05/19 04:45 Hgb 13.2 gm/dl (11.2-15.7) 11/05/19 04:45 Hct 39.7 % (34.1-44.9) 11/05/19 04:45 MCV 89.6 fl (79.4-94.8) 11/05/19 04:45 MCH 29.8 pg (25.6-32.2) 11/05/19 04:45 MCHC 33.2 g/dl (32.2-35.5) 11/05/19 04:45 RDW Std Deviation 42.6 fL (36.4-46.3) 11/05/19 04:45 Plt Count 164 K/mm3 (182-369) L 11/05/19 04:45 MPV 10.6 fl (9.4-12.3) 11/05/19 04:45 Neut % (Auto) 73.6 % (34.0-71.1) H 11/05/19 04:45 Lymph % (Auto) 15.4 % (19.3-51.7) L 11/05/19 04:45 [place] % (Auto) 6.1 % (4.7-12.5) 11/05/19 04:45 Eos % (Auto) 4.3 (0.7-5.8) 11/05/19 04:45 Baso % (Auto) 0.2 % (0.1-1.2) 11/05/19 04:45 Neut # (Auto) 4.12 K/mm3 (1.56-6.13) 11/05/19 04:45 Lymph # (Auto) 0.86 K/mm3 (1.18-3.74) L 11/05/19 04:45 [place] # (Auto) 0.34 K/mm3 (0.24-0.36) 11/05/19 04:45 Eos # (Auto) 0.24 K/mm3 (0.04-0.36) 11/05/19 04:45 Baso # (Auto) 0.01 K/mm3 (0.01-0.08) 11/05/19 04:45 PT 10.9 SECONDS (9.7-12.0) 11/03/19 11:47 INR 1.00 11/03/19 11:47 Sodium 143 mEq/L (136-145) 11/05/19 04:45 Potassium 3.6 mEq/L (3.5-5.1) 11/05/19 04:45 Chloride 108 mEq/L (98-107) H 11/05/19 04:45 Carbon Dioxide 27 mEq/L (21-32) 11/05/19 04:45 Anion Gap 11.6 (5-15) 11/05/19 04:45 BUN 11 mg/dL (7-18) 11/05/19 04:45 Creatinine 0.9 mg/dL (0.55-1.02) 11/05/19 04:45 Est Cr Clr Drug Dosing 67.45 mL/min 11/05/19 04:45 Estimated GFR (MDRD) > 60 mL/min (>60) 11/05/19 04:45 BUN/Creatinine Ratio 12.2 (14-18) L 11/05/19 04:45 Glucose 98 mg/dL (74-106) 11/05/19 04:45 Calcium 8.7 mg/dL (8.5-10.1) 11/05/19 04:45 Total Bilirubin 1.2 mg/dL (0.2-1.0) H 11/03/19 11:47 AST 72 U/L (15-37) H 11/03/19 11:47 ALT 55 U/L (14-59) 11/03/19 11:47 Alkaline Phosphatase 154 U/L (46-116) H 11/03/19 11:47 Creatine Kinase 177 U/L (26-192) 11/03/19 11:47 Total Protein 7.4 g/dl (6.4-8.2) 11/03/19 11:47 Albumin 3.5 g/dl (3.4-5.0) 11/03/19 11:47 Globulin 3.9 gm/dL 11/03/19 11:47 Albumin/Globulin Ratio 0.9 (1-2) L 11/03/19 11:47 Vitamin D 25-Hydroxy 36.8 ng/ml (30.0-100.0) 11/03/19 11:47 HCG, Qual Negative (NEGATIVE) 11/03/19 11:47 Urine Color Yellow (Yellow) 11/03/19 15:48 Urine Appearance Clear (Clear) 11/03/19 15:48 Urine pH 5.5 (5.0-8.0) 11/03/19 15:48 Ur Specific [place] > or = 1.030 (1.005-1.030) 11/03/19 15:48 Urine Protein Negative (Negative) 11/03/19 15:48 Urine Glucose (UA) Negative (Negative) 11/03/19 15:48 Urine Ketones Negative (Negative) 11/03/19 15:48 Urine Occult Blood Negative (Negative) 11/03/19 15:48 Urine Nitrite Negative (Negative) 11/03/19 15:48 Urine Bilirubin Negative (Negative) 11/03/19 15:48 Urine Urobilinogen 1.0 (0.2-1.0) 11/03/19 15:48 Ur Leukocyte Esterase Negative (Negative) 11/03/19 15:48 Urine RBC 0-5 /hpf (0-5) 11/03/19 15:48 Urine WBC 0-5 /hpf (0-5) 11/03/19 15:48 Ur Squamous Epith Cells 0-5 /hpf (0-5) 11/03/19 15:48 Urine Bacteria Few /hpf (FEW) 11/03/19 15:48 Urine Mucus Moderate /hpf (FEW) H 11/03/19 15:48 COVID-19 (ELVIRA) Negative (NEGATIVE) 11/03/19 15:48 - Allergies Allergies/Adverse Reactions: Allergies Allergy/AdvReac Type Severity Reaction Status Date / Time Sulfa (Sulfonamide Allergy Cannot Verified 11/03/19 13:56 Antibiotics) Remember - Acknowledgements Anesthesia Type Planned: Regional Block (right popliteal block for post- procedure pain), MAC Pt an Appropriate Candidate for the Planned Anesthesia: Yes Alternatives and Risks of Anesthesia Discussed w Pt/Guardian: Yes Pt/Guardian Understands and Agrees with Anesthesia Plan: Yes PreAnesthesia Questionnaire HEENT History: Reports: Other (See Below) Other HEENT History: wearing glasses 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: Neurological History: Reports: CVA, Seizure 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, infarct zones per CT, right side hemiparesis Endocrine/Metabolic History: Reports: Obesity/BMI 30+ - Past Surgical History Head Surgeries/Procedures: Reports: Craniotomy - SUBSTANCE USE Smoking Status *Q: Former Smoker Tobacco Use Within Last Twelve Months: Cigarettes Second Hand Smoke Exposure: No Recreational Drug Use History: No - HOME MEDS Home Medications: Home Meds Aspirin [Halfprin] 325 mg PO DAILY 08/24/13 [History] Gabapentin [Neurontin] 600 mg PO BID 08/24/13 [History] busPIRone HCl [busPIRone] 15 mg PO BID 08/24/13 [History] levETIRAcetam [Keppra] 500 mg PO BID 08/24/13 [History] Amantadine [Symmetrel] 100 mg PO BID 11/03/19 [History] Baclofen 5 mg PO 1200 11/03/19 [History] Baclofen 10 mg PO BID 11/03/19 [History] Ergocalciferol (Vitamin D2) [Vitamin D2] 1.25 mg PO WEEKLY 11/03/19 [History] Felodipine [Felodipine ER] 2.5 mg PO BEDTIME 11/03/19 [History] Omeprazole 20 mg PO DAILY 11/03/19 [History] Propranolol [Inderal] 10 mg PO BID 11/03/19 [History] - CURRENT (IN HOUSE) MEDS Current Meds: Current Medications Acetaminophen (Tylenol) 650 mg PO Q4H PRN PRN Reason: Pain (Mild 1-3)/fever Last Admin: 11/04/19 15:38 Dose: 650 mg Documented by: Hydrocodone Bitart/Acetaminophen ([place] 325-5 Mg) 1 tab PO Q4H PRN PRN Reason: Pain (moderate 4-6) Last Admin: 11/05/19 03:41 Dose: 1 tab Documented by: Albuterol/Ipratropium (Duoneb 3.0-0.5 Mg/3 Ml) 3 ml NEB Q4H PRN PRN Reason: Shortness Of Breath/wheezing Amantadine HCl (Symmetrel) 100 mg PO BID [facility] Last Admin: 11/05/19 10:52 Dose: 100 mg Documented by: Amlodipine Besylate (Norvasc) 2.5 mg PO BEDTIME [facility] Last Admin: 11/04/19 21:28 Dose: 2.5 mg Documented by: Aspirin (Ecotrin) 325 mg PO DAILY [facility] Last Admin: 11/05/19 09:39 Dose: 325 mg Documented by: Baclofen (Lioresal) 5 mg PO DAILY@1200 [facility] Last Admin: 11/04/19 12:05 Dose: 5 mg Documented by: Baclofen (Lioresal) 10 mg PO BID [facility] Last Admin: 11/05/19 10:40 Dose: Not Given Documented by: Buspirone HCl (Buspar) 15 mg PO BID [facility] Last Admin: 11/05/19 09:41 Dose: 15 mg Documented by: Calcium Carbonate (Calcium Carbonate/Vitamin D 600 Mg-200 Unit) 1 tab PO DAILY [facility] Last Admin: 11/05/19 09:39 Dose: 1 tab Documented by: Docusate Sodium (Colace) 100 mg PO BID PRN PRN Reason: Constipation Gabapentin (Neurontin) 600 mg PO BID [facility] Last Admin: 11/05/19 09:41 Dose: 600 mg Documented by: Hydromorphone HCl (Dilaudid) 0.5 mg IVPUSH Q2H PRN PRN Reason: Pain (severe 7-10) Last Admin: 11/05/19 08:47 Dose: 0.5 mg Documented by: Promethazine HCl 12.5 mg/ (Sodium Chloride) 50.5 mls @ 100 mls/hr IV Q6H PRN PRN Reason: Nausea/Vomiting Ketorolac Tromethamine (Toradol) 30 mg IVPUSH Q6H PRN PRN Reason: Pain (moderate 4-6) Stop: 11/08/19 15:30 Last Admin: 11/05/19 08:33 Dose: 30 mg Documented by: Levetiracetam (Keppra) 500 mg PO BID [facility] Last Admin: 11/05/19 09:39 Dose: 500 mg Documented by: Nystatin (Nystop) 0 gm TOP BID [facility] Last Admin: 11/05/19 09:42 Dose: 1 applic Documented by: Ondansetron HCl (Zofran) 4 mg IV Q6H PRN PRN Reason: Nausea/Vomiting Pantoprazole Sodium (Protonix) 40 mg PO DAILY [facility] Last Admin: 11/05/19 09:39 Dose: 40 mg Documented by: Polyethylene Glycol (Miralax) 17 gm PO DAILY PRN PRN Reason: Constipation Potassium Chloride (Klor-Con M20) 20 meq PO DAILY [facility] Last Admin: 11/05/19 09:41 Dose: 20 meq Documented by: Propranolol HCl (Inderal) 10 mg PO BID [facility] Last Admin: 11/05/19 09:39 Dose: 10 mg Documented by: Senna/Docusate Sodium (Senna Plus) 1 tab PO BID PRN PRN Reason: Constipation Sodium Chloride (Saline Flush) 10 ml FLUSH ASDIRECTED PRN PRN Reason: Keep Vein Open Discontinued Medications Hydromorphone HCl (Dilaudid) 1 mg IM ONETIME ONE Stop: 11/03/19 09:59 Last Admin: 11/03/19 10:04 Dose: 1 mg Documented by: Levetiracetam (Keppra) 500 mg PO BID PRN PRN Reason: Seizures
[2019-11-05] MEDS: amLODIPine 2.5 MG Tab PO SCH (20:16)
[2019-11-06] MEDS: HYDROmorphone 0.5 MG/0.5 ML Syringe IVPUSH PRN (02:40)
[2019-11-06] MEDS ORDERED: Ropivacaine 0.5% 5 MG/ML 30 ML SDV ONE (06:11)
[2019-11-06] MEDS ORDERED: Midazolam 1 MG/ML 2 ML SDV ONE (06:14)
[2019-11-06] MEDS ORDERED: fentaNYL 100 MCG/2 ML SDV ONE (06:14)
--- NOTE | 2019-11-06 07:24 | PCM.PRNOTE ---
- Free Text/Narrative Note: Post-procedure regional pain control requested by surgeon. Pre-op Dx: Right distal tibia fracture Surgery : Right distal tibia fracture close reduction and casting Anesthesia Procedure: Right Popliteal block with U/S guidance Requesting physician: Dr. Gary Khan Risks and benefits discussed with the patient preoperatively including infection, bleeding, incomplete or failed block, possible nerve damage, local anesthetic toxicity. Chart reviewed, VS stable. Permit signed. Patient in room 11, stable, alert and awake, positioned in left lateral decubitus. Time out performed at 06:43. Oxygen 0.5L via NC. Right lateral thigh area above the knee was prepped with Chloraprep x 1 and allowed to dry. No IV sedation given. Under aseptic technique, the Right common peroneal and Right tibial nerves were identified under ultrasound prior to needle insertion. Local infiltration with 1% Lidocaine. 4" Stimuplex needle #22 G was inserted under US guidance. Under direct visualization of needle tip the injection of 0.5% Ropivacaine with 6 mg of Dexamethasone, total of 30 mls in divided doses, maint aining negative aspiration was completed without problems around both nerves. No local anesthetic toxicity was noted. Patient is awake, stable and tolerated the procedure well. Please see attached U/S images Time: 06:38 - 06:54
[2019-11-06] MEDS ORDERED: Dexamethasone 4 MG/ML 5 ML MDV ONE (07:26)
[2019-11-06] MEDS ORDERED: Propofol 200 MG/20 ML SDV ONE (07:29)
[2019-11-06] MEDS ORDERED: Sodium Chloride 0.9% 250 ML ONE (07:38)
--- NOTE | 2019-11-06 08:12 | PCM.PN ---
- General Info Date of Service: 11/06/19 Admission Dx/Problem (Free Text): Status Post fall and Bone Fractures Subjective Update: 11/05/19: No overnight issues. However she reported really bad pain on her leg while sitting up on a chair. She rated her pain at 9/10. Otherwise she had no other complaints. Her vitals were stable. 11/04/19: No overnight or acute issues. Her pain is controlled. Her vitals are stable. No seizures. Functional Status: Reports: Pain Controlled, Tolerating Diet, Ambulating, Urinating - Review of Systems General: Denies: Fever, Chills HEENT: Reports: No Symptoms Pulmonary: Denies: Shortness of Breath Cardiovascular: Denies: Chest Pain, Lightheadedness Gastrointestinal: Denies: Abdominal Pain, Nausea, Vomiting Genitourinary: Reports: No Symptoms Musculoskeletal: Reports: No Symptoms Skin: Reports: No Symptoms Neurological: Denies: Confusion, Dizziness, Headache, Numbness, Paresthesia, Seizure, Syncope, Tingling, Weakness, Gait Disturbance Psychiatric: Denies: Mood Lability, Anxiety, Agitation, Hallucinations, Homicidal Ideation Systems Review Comment:: 11/06/2019: No change in condition. She did have a nasty urine ventilation mechanic hours. UA shows urinary infection. She is afebrile and no signs of systemic infection. - Patient Data Vitals - Most Recent: Last Vital Signs Temp 37.0 C 11/06/19 04:11 Pulse 87 11/06/19 04:11 Resp 15 11/06/19 04:11 BP 129/69 11/06/19 04:11 Pulse Ox 95 11/06/19 04:11 Weight - Most Recent: 109.769 kg I&O - Last 24 Hours: Intake & Output 11/05/19 11/06/19 11/06/19 22:59 06:59 14:59 Intake Total 230 200 Output Total 250 750 Balance -20 -550 Lab Results Last 24 Hours: Laboratory Results - last 24 hr 11/06/19 11/06/19 11/06/19 Range/Units 04:00 06:07 06:07 WBC 7.96 (3.98-10.04) K/mm3 RBC 4.40 (3.98-5.22) M/mm3 Hgb 13.2 (11.2-15.7) gm/dl Hct 39.7 (34.1-44.9) % MCV 90.2 (79.4-94.8) fl MCH 30.0 (25.6-32.2) pg MCHC 33.2 (32.2-35.5) g/dl RDW Std Deviation 42.4 (36.4-46.3) fL Plt Count 163 L (182-369) K/mm3 MPV 10.3 (9.4-12.3) fl Neut % (Auto) 71.7 H (34.0-71.1) % Lymph % (Auto) 16.0 L (19.3-51.7) % [place] % (Auto) 8.8 (4.7-12.5) % Eos % (Auto) 3.0 (0.7-5.8) Baso % (Auto) 0.1 (0.1-1.2) % Neut # (Auto) 5.71 (1.56-6.13) K/mm3 Lymph # (Auto) 1.27 (1.18-3.74) K/mm3 [place] # (Auto) 0.70 H (0.24-0.36) K/mm3 Eos # (Auto) 0.24 (0.04-0.36) K/mm3 Baso # (Auto) 0.01 (0.01-0.08) K/mm3 Sodium 143 (136-145) mEq/L Potassium 4.1 (3.5-5.1) mEq/L Chloride 107 (98-107) mEq/L Carbon Dioxide 26 (21-32) mEq/L Anion Gap 14.1 (5-15) BUN 13 (7-18) mg/dL Creatinine 0.9 (0.55-1.02) mg/dL Est Cr Clr Drug Dosing 67.45 mL/min Estimated GFR (MDRD) > 60 (>60) mL/min BUN/Creatinine Ratio 14.4 (14-18) Glucose 105 (74-106) mg/dL Calcium 8.7 (8.5-10.1) mg/dL Urine Color [place] H (Yellow) Urine Appearance [place] H (Clear) Urine pH 7.0 (5.0-8.0) Ur Specific [place] 1.025 (1.005-1.030) Urine Protein 3+ H (Negative) Urine Glucose (UA) Negative (Negative) Urine Ketones Negative (Negative) Urine Occult Blood 3+ H (Negative) Urine Nitrite Positive H (Negative) Urine Bilirubin Negative (Negative) Urine Urobilinogen 1.0 (0.2-1.0) Ur Leukocyte Esterase 3+ H (Negative) Urine RBC 50-75 H (0-5) /hpf Urine WBC >100 H (0-5) /hpf Ur Squamous Epith Cells 0-5 (0-5) /hpf Urine Bacteria Moderate H (FEW) /hpf Urine Mucus Not seen (FEW) /hpf Med Orders - Current: Current Medications Acetaminophen (Tylenol) 650 mg PO Q4H PRN PRN Reason: Pain (Mild 1-3)/fever Last Admin: 11/04/19 15:38 Dose: 650 mg Documented by: Hydrocodone Bitart/Acetaminophen ([place] 325-5 Mg) 1 tab PO Q4H PRN PRN Reason: Pain (moderate 4-6) Last Admin: 11/05/19 23:24 Dose: 1 tab Documented by: Albuterol/Ipratropium (Duoneb 3.0-0.5 Mg/3 Ml) 3 ml NEB Q4H PRN PRN Reason: Shortness Of Breath/wheezing Amantadine HCl (Symmetrel) 100 mg PO BID [facility] Last Admin: 11/05/19 20:16 Dose: 100 mg Documented by: Amlodipine Besylate (Norvasc) 2.5 mg PO BEDTIME [facility] Last Admin: 11/05/19 20:16 Dose: 2.5 mg Documented by: Aspirin (Ecotrin) 325 mg PO DAILY [facility] Last Admin: 11/05/19 09:39 Dose: 325 mg Documented by: Baclofen (Lioresal) 5 mg PO DAILY@1200 [facility] Last Admin: 11/05/19 12:59 Dose: 5 mg Documented by: Baclofen (Lioresal) 10 mg PO BID [facility] Last Admin: 11/05/19 20:16 Dose: 10 mg Documented by: Buspirone HCl (Buspar) 15 mg PO BID [facility] Last Admin: 11/05/19 20:15 Dose: 15 mg Documented by: Calcium Carbonate (Calcium Carbonate/Vitamin D 600 Mg-200 Unit) 1 tab PO DAILY [facility] Last Admin: 11/05/19 09:39 Dose: 1 tab Documented by: Docusate Sodium (Colace) 100 mg PO BID PRN PRN Reason: Constipation Gabapentin (Neurontin) 600 mg PO BID [facility] Last Admin: 11/05/19 20:15 Dose: 600 mg Documented by: Hydromorphone HCl (Dilaudid) 0.5 mg IVPUSH Q2H PRN PRN Reason: Pain (severe 7-10) Last Admin: 11/06/19 02:40 Dose: 0.5 mg Documented by: Promethazine HCl 12.5 mg/ (Sodium Chloride) 50.5 mls @ 100 mls/hr IV Q6H PRN PRN Reason: Nausea/Vomiting Ketorolac Tromethamine (Toradol) 30 mg IVPUSH Q6H PRN PRN Reason: Pain (moderate 4-6) Stop: 11/08/19 15:30 Last Admin: 11/05/19 08:33 Dose: 30 mg Documented by: Levetiracetam (Keppra) 500 mg PO BID [facility] Last Admin: 11/05/19 20:15 Dose: 500 mg Documented by: Nystatin (Nystop) 0 gm TOP BID [facility] Last Admin: 11/05/19 20:15 Dose: 1 applic Documented by: Ondansetron HCl (Zofran) 4 mg IV Q6H PRN PRN Reason: Nausea/Vomiting Pantoprazole Sodium (Protonix) 40 mg PO DAILY [facility] Last Admin: 11/05/19 09:39 Dose: 40 mg Documented by: Polyethylene Glycol (Miralax) 17 gm PO DAILY PRN PRN Reason: Constipation Potassium Chloride (Klor-Con M20) 20 meq PO DAILY [facility] Last Admin: 11/05/19 09:41 Dose: 20 meq Documented by: Propranolol HCl (Inderal) 10 mg PO BID [facility] Last Admin: 11/05/19 20:16 Dose: 10 mg Documented by: Senna/Docusate Sodium (Senna Plus) 1 tab PO BID PRN PRN Reason: Constipation Sodium Chloride (Saline Flush) 10 ml FLUSH ASDIRECTED PRN PRN Reason: Keep Vein Open Discontinued Medications Dexamethasone (Dexamethasone) Confirm Administered Dose 20 mg .ROUTE .STK-MED ONE Stop: 11/06/19 07:27 Fentanyl (Sublimaze) Confirm Administered Dose 100 mcg .ROUTE .STK-MED ONE Stop: 11/06/19 06:15 Hydromorphone HCl (Dilaudid) 1 mg IM ONETIME ONE Stop: 11/03/19 09:59 Last Admin: 11/03/19 10:04 Dose: 1 mg Documented by: Sodium Chloride (Normal Saline) Confirm Administered Dose 250 mls @ as directed .ROUTE .STK-MED ONE Stop: 11/06/19 07:39 Levetiracetam (Keppra) 500 mg PO BID PRN PRN Reason: Seizures Midazolam HCl (Versed 1 Mg/Ml) Confirm Administered Dose 2 mg .ROUTE .STK-MED ONE Stop: 11/06/19 06:15 Propofol (Diprivan 20 Ml) Confirm Administered Dose 200 mg .ROUTE .STK-MED ONE Stop: 11/06/19 07:30 Ropivacaine (Naropin 0.5%) Confirm Administered Dose 30 ml .ROUTE .STK-MED ONE Stop: 11/06/19 06:12 - Exam General: Alert, Oriented, Cooperative, No Acute Distress, Other (Morbidly obese) HEENT: Pupils Equal, Pupils Reactive, EOMI, Mucous Membr. Moist/[place] Neck: Supple, Other (short and thick neck) Lungs: Clear to Auscultation, Normal Respiratory Effort Cardiovascular: Regular Rate, Regular Rhythm GI/Abdominal Exam: Normal Bowel Sounds, Soft, Non-Tender, No Organomegaly, No Distention, Other (Obese) (Female) Exam: Deferred Back Exam: Normal Inspection, Decreased Range of Motion Extremities: Normal Inspection, Normal Range of Motion, Non-Tender, No Pedal Edema, Normal Capillary Refill, Limited Range of Motion (right lower extremity), Other (right leg: dressed and wrapped) Peripheral Pulses: 2+: Dorsalis Pedis (L), Dorsalis Pedis (R) Skin: Warm, Dry, Intact Neurological: No New Focal Deficit Psy/Mental Status: Alert, Normal Affect, Normal Mood Sepsis Event Note - Evaluation Sepsis Screening Result: No Definite Risk - Focused Exam Vital Signs: Vital Signs Temp Pulse Resp BP Pulse Ox 11/06/19 04:11 37.0 C 87 15 129/69 95 11/05/19 22:56 36.9 C 89 12 117/82 97 11/05/19 20:16 109 H 134/81 Date Exam was Performed: 11/06/19 Time Exam was Performed: 08:15 - Problem List Review Problem List Initiated/Reviewed/Updated: Yes - Plan Plan:: This is a 44 yo white female with 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 Assessment: * Non displaced Right Tibia/Fibular Fractures 2/2 fall. She fell out of bed this AM. X-ray confirmed fractures. Cased discussed with Dr. Castañeda by ED provider. He recommend to see her in 2-3 days. No seizures or stroke like activities during this incident. Continue medical management and pain control. She is scheduled for leg cast placement this AM. * Status Post Fall. Has underlying gait instability. Fall precautions * Gait Instability. Has baseline right sided weakness. Plan: fall precautions and PT/OT * Ecchymosis status post fall. Will monitor. * Morbid Obesity. 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 * UTI. UA shows infection. Will give 1 gram of Rocephin Daily. Chronic: Hx/o CVA with right sided weakness, hx/o brain bleed status post craniotomy, seizure disorder, vitamin d deficiency, intellectual disability, and muscle spasms. Plan: Continue current treatment. PT/OT follow up. IV antibiotic. Possible discharge this afternoon.
--- NOTE | 2019-11-06 08:37 | PCM48HPAN ---
Post Anesthesia Note - EVALUATION WITHIN 48HRS OF ANESTHETIC Vital Signs in Normal Range: Yes Patient Participated in Evaluation: Yes Respiratory Function Stable: Yes Airway Patent: Yes Cardiovascular Function Stable: Yes Hydration Status Stable: Yes Pain Control Satisfactory: Yes Nausea and Vomiting Control Satisfactory: Yes Mental Status Recovered: Yes Vital Signs: Last Vital Signs Temp 97.9 F 11/06/19 08:17 Pulse 87 11/06/19 08:17 Resp 15 11/06/19 04:11 BP 133/69 11/06/19 08:17 Pulse Ox 98 11/06/19 08:17
--- NOTE | 2019-11-06 09:23 | CR ---
Right tibia and fibula: 4 fluoroscopic spot views were obtained of the distal tibia and fibula utilizing C-arm device. Study shows reduction and placement of a fiberglass cast. Fluoroscopy time given as 8.7 seconds. Impression: 1. Reduction tibial fracture with placement of cast. Diagnostic code #2 This report was dictated in MDT
--- NOTE | 2019-11-06 09:31 | PCM.DCSUM1 ---
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 Diagnosis: Stroke: No - Discharge Data Discharge Date: 11/06/19 Discharge Disposition: DC/Tfer to SNF 03 Condition: Good - Referral to Home Health Primary Care Physician: Wilmer Dalton PA-C - Patient Summary/Data Operative Procedure(s) Performed: Leg cast placement Complications: None Consults: Consultations 11/03/19 12:25 Consult to Case Management/Compounder [CONS] Routine OT Evaluation and Treatment [CONS] Routine PT Evaluation and Treatment [CONS] Routine 11/03/19 13:33 Consult to Dietary [Consult to School Adjustment Counselor] [CONS] Routine Labs Pending at D/C: None Recommended Follow-up Testing/Procedures: Ortho as scheduled Planned Operative Procedure(s) after DC: None Hospital Course: Patient was primarily admitted for medical management of nondisplaced tibia and fibular fractures. Her pain was management with pain medication and Ortho immobilized her leg with a cast. Her hospital course was fairly uncomplicated. However she was diagnosed with asymptomatic mild UTI during this admission. Patient received 1 gram of IV Rocephin and she will be switched to oral for for 3 more days of additional treatment. - Patient Instructions Diet: Usual Diet as Tolerated Activity: Apply Ice, As Tolerated, Elevate Extremity Activity, Other: No weight through right lower extremity. Driving: Do Not Drive Showering/Bathing: May Shower Showering/Bathing, Other: Keep cast clean and dry. Wound/Incision Care: Keep Operative Site/Wound Site Clean and Dry, Do NOT Change Dressing Notify Provider of: Fever, Increased Pain, Swelling and Redness, Drainage, Nausea and/or Vomiting Other/Special Instructions: Please elevate the limb to decrease swelling. You may place ice to the area as needed. Please do not place weight through the right leg. Have physical and occupational therapy to assist with mobility. Please call [facility] with questions - [phone] and leave a message for the nurse. - Discharge Plan *PRESCRIPTION DRUG MONITORING PROGRAM REVIEWED*: Not Applicable *COPY OF PRESCRIPTION DRUG MONITORING REPORT IN PATIENT JAMES: Not Applicable Prescriptions/Med Rec: Ciprofloxacin HCl [Cipro] 250 mg PO BID #6 tablet Naproxen Sodium [Naproxen Sodium ER] 500 mg PO BID #14 tablet.er oxyCODONE HCl [Oxycodone HCl] 10 mg PO Q8H #12 tablet Docusate Sodium/Sennosides [Senokot-S] 1 each PO BEDTIME #15 tablet Home Medications: Home Meds Aspirin [Halfprin] 325 mg PO DAILY 08/24/13 [History] busPIRone HCl [busPIRone] 15 mg PO BID 08/24/13 [History] Amantadine [Symmetrel] 100 mg PO BID 11/03/19 [History] Baclofen 5 mg PO 1200 11/03/19 [History] Ergocalciferol (Vitamin D2) [Vitamin D2] 1.25 mg PO WEEKLY 11/03/19 [History] Felodipine [Felodipine ER] 2.5 mg PO BEDTIME 11/03/19 [History] Omeprazole 20 mg PO DAILY 11/03/19 [History] Propranolol [Inderal] 10 mg PO BID 11/03/19 [History] Baclofen 10 mg PO BID #0 11/06/19 [Rx] Ciprofloxacin HCl [Cipro] 250 mg PO BID #6 tablet 11/06/19 [Rx] Docusate Sodium/Sennosides [Senokot-S] 1 each PO BEDTIME #15 tablet 11/06/19 [Rx] Gabapentin [Neurontin] 600 mg PO BID #0 11/06/19 [Rx] Naproxen Sodium [Naproxen Sodium ER] 500 mg PO BID #14 tablet.er 11/06/19 [Rx] levETIRAcetam [Keppra] 500 mg PO BID #0 11/06/19 [Rx] oxyCODONE HCl [Oxycodone HCl] 10 mg PO Q8H #12 tablet 11/06/19 [Rx] Oxygen Therapy Mode: Room Air Patient Handouts: Tibial and Fibular Fractures, Cast or Splint Care, Adult, [id number], Urinary Tract Infection, Adult Referrals: Wilmer Dalton PA-C [Primary Care Provider] - Pat Tate PA-C [Physician Information Technology Specialist] - - Discharge Summary/Plan Comment DC Time >30 min.: No Discharge Summary/Plan Comment: She will be discharged to [facility] for inpatient rehab. Outpatient follow up with Ortho has been set up for her after discharge. - General Info Date of Service: 11/06/19 Admission Dx/Problem (Free Text: Status Post fall and Bone Fractures Subjective Update: 11/05/19: No overnight issues. However she reported really bad pain on her leg while sitting up on a chair. She rated her pain at 9/10. Otherwise she had no other complaints. Her vitals were stable. 11/04/19: No overnight or acute issues. Her pain is controlled. Her vitals are stable. No seizures. Functional Status: Reports: Pain Controlled, Tolerating Diet, Urinating - Review of Systems General: Denies: Fever, Chills HEENT: Reports: No Symptoms Pulmonary: Denies: Shortness of Breath Cardiovascular: Denies: Chest Pain Gastrointestinal: Denies: Abdominal Pain, Nausea, Vomiting Genitourinary: Denies: Dysuria, Frequency, Burning, Pain, Hematuria, Flank Pain Musculoskeletal: Reports: Leg Pain Skin: Denies: Pruritis, Rash Neurological: Reports: Gait Disturbance. Denies: Weakness Psychiatric: Denies: Depression, Anxiety, Agitation, Hallucinations - Patient Data Vitals - Most Recent: Last Vital Signs Temp 36.6 C 11/06/19 08:17 Pulse 87 11/06/19 08:17 Resp 15 11/06/19 04:11 BP 133/69 11/06/19 08:17 Pulse Ox 98 11/06/19 08:17 Weight - Most Recent: 109.769 kg I&O - Last 24 hours: Intake & Output 11/05/19 11/06/19 11/06/19 22:59 06:59 14:59 Intake Total 230 200 Output Total 250 750 Balance -20 -550 Lab Results - Last 24 hrs: Laboratory Results - last 24 hr 11/06/19 11/06/19 11/06/19 Range/Units 04:00 06:07 06:07 WBC 7.96 (3.98-10.04) K/mm3 RBC 4.40 (3.98-5.22) M/mm3 Hgb 13.2 (11.2-15.7) gm/dl Hct 39.7 (34.1-44.9) % MCV 90.2 (79.4-94.8) fl MCH 30.0 (25.6-32.2) pg MCHC 33.2 (32.2-35.5) g/dl RDW Std Deviation 42.4 (36.4-46.3) fL Plt Count 163 L (182-369) K/mm3 MPV 10.3 (9.4-12.3) fl Neut % (Auto) 71.7 H (34.0-71.1) % Lymph % (Auto) 16.0 L (19.3-51.7) % [place] % (Auto) 8.8 (4.7-12.5) % Eos % (Auto) 3.0 (0.7-5.8) Baso % (Auto) 0.1 (0.1-1.2) % Neut # (Auto) 5.71 (1.56-6.13) K/mm3 Lymph # (Auto) 1.27 (1.18-3.74) K/mm3 [place] # (Auto) 0.70 H (0.24-0.36) K/mm3 Eos # (Auto) 0.24 (0.04-0.36) K/mm3 Baso # (Auto) 0.01 (0.01-0.08) K/mm3 Sodium 143 (136-145) mEq/L Potassium 4.1 (3.5-5.1) mEq/L Chloride 107 (98-107) mEq/L Carbon Dioxide 26 (21-32) mEq/L Anion Gap 14.1 (5-15) BUN 13 (7-18) mg/dL Creatinine 0.9 (0.55-1.02) mg/dL Est Cr Clr Drug Dosing 67.45 mL/min Estimated GFR (MDRD) > 60 (>60) mL/min BUN/Creatinine Ratio 14.4 (14-18) Glucose 105 (74-106) mg/dL Calcium 8.7 (8.5-10.1) mg/dL Urine Color Camryn H (Yellow) Urine Appearance Turbid H (Clear) Urine pH 7.0 (5.0-8.0) Ur Specific [place] 1.025 (1.005-1.030) Urine Protein 3+ H (Negative) Urine Glucose (UA) Negative (Negative) Urine Ketones Negative (Negative) Urine Occult Blood 3+ H (Negative) Urine Nitrite Positive H (Negative) Urine Bilirubin Negative (Negative) Urine Urobilinogen 1.0 (0.2-1.0) Ur Leukocyte Esterase 3+ H (Negative) Urine RBC 50-75 H (0-5) /hpf Urine WBC >100 H (0-5) /hpf Ur Squamous Epith Cells 0-5 (0-5) /hpf Urine Bacteria Moderate H (FEW) /hpf Urine Mucus Not seen (FEW) /hpf Med Orders - Current: Current Medications Acetaminophen (Tylenol) 650 mg PO Q4H PRN PRN Reason: Pain (Mild 1-3)/fever Last Admin: 11/04/19 15:38 Dose: 650 mg Documented by: Hydrocodone Bitart/Acetaminophen ([place] 325-5 Mg) 1 tab PO Q4H PRN PRN Reason: Pain (moderate 4-6) Last Admin: 11/05/19 23:24 Dose: 1 tab Documented by: Albuterol/Ipratropium (Duoneb 3.0-0.5 Mg/3 Ml) 3 ml NEB Q4H PRN PRN Reason: Shortness Of Breath/wheezing Amantadine HCl (Symmetrel) 100 mg PO BID [facility] Last Admin: 11/05/19 20:16 Dose: 100 mg Documented by: Amlodipine Besylate (Norvasc) 2.5 mg PO BEDTIME [facility] Last Admin: 11/05/19 20:16 Dose: 2.5 mg Documented by: Aspirin (Ecotrin) 325 mg PO DAILY [facility] Last Admin: 11/05/19 09:39 Dose: 325 mg Documented by: Baclofen (Lioresal) 5 mg PO DAILY@1200 [facility] Last Admin: 11/05/19 12:59 Dose: 5 mg Documented by: Baclofen (Lioresal) 10 mg PO BID [facility] Last Admin: 11/05/19 20:16 Dose: 10 mg Documented by: Buspirone HCl (Buspar) 15 mg PO BID [facility] Last Admin: 11/05/19 20:15 Dose: 15 mg Documented by: Calcium Carbonate (Calcium Carbonate/Vitamin D 600 Mg-200 Unit) 1 tab PO DAILY [facility] Last Admin: 11/05/19 09:39 Dose: 1 tab Documented by: Docusate Sodium (Colace) 100 mg PO BID PRN PRN Reason: Constipation Gabapentin (Neurontin) 600 mg PO BID [facility] Last Admin: 11/05/19 20:15 Dose: 600 mg Documented by: Hydromorphone HCl (Dilaudid) 0.5 mg IVPUSH Q2H PRN PRN Reason: Pain (severe 7-10) Last Admin: 11/06/19 02:40 Dose: 0.5 mg Documented by: Promethazine HCl 12.5 mg/ (Sodium Chloride) 50.5 mls @ 100 mls/hr IV Q6H PRN PRN Reason: Nausea/Vomiting Ketorolac Tromethamine (Toradol) 30 mg IVPUSH Q6H PRN PRN Reason: Pain (moderate 4-6) Stop: 11/08/19 15:30 Last Admin: 11/05/19 08:33 Dose: 30 mg Documented by: Levetiracetam (Keppra) 500 mg PO BID [facility] Last Admin: 11/05/19 20:15 Dose: 500 mg Documented by: Nystatin (Nystop) 0 gm TOP BID [facility] Last Admin: 11/05/19 20:15 Dose: 1 applic Documented by: Ondansetron HCl (Zofran) 4 mg IV Q6H PRN PRN Reason: Nausea/Vomiting Pantoprazole Sodium (Protonix) 40 mg PO DAILY [facility] Last Admin: 11/05/19 09:39 Dose: 40 mg Documented by: Polyethylene Glycol (Miralax) 17 gm PO DAILY PRN PRN Reason: Constipation Potassium Chloride (Klor-Con M20) 20 meq PO DAILY [facility] Last Admin: 11/05/19 09:41 Dose: 20 meq Documented by: Propranolol HCl (Inderal) 10 mg PO BID [facility] Last Admin: 11/05/19 20:16 Dose: 10 mg Documented by: Senna/Docusate Sodium (Senna Plus) 1 tab PO BID PRN PRN Reason: Constipation Sodium Chloride (Saline Flush) 10 ml FLUSH ASDIRECTED PRN PRN Reason: Keep Vein Open Discontinued Medications Dexamethasone (Dexamethasone) Confirm Administered Dose 20 mg .ROUTE .STK-MED ONE Stop: 11/06/19 07:27 Fentanyl (Sublimaze) Confirm Administered Dose 100 mcg .ROUTE .STK-MED ONE Stop: 11/06/19 06:15 Hydromorphone HCl (Dilaudid) 1 mg IM ONETIME ONE Stop: 11/03/19 09:59 Last Admin: 11/03/19 10:04 Dose: 1 mg Documented by: Sodium Chloride (Normal Saline) Confirm Administered Dose 250 mls @ as directed .ROUTE .STK-MED ONE Stop: 11/06/19 07:39 Levetiracetam (Keppra) 500 mg PO BID PRN PRN Reason: Seizures Midazolam HCl (Versed 1 Mg/Ml) Confirm Administered Dose 2 mg .ROUTE .STK-MED ONE Stop: 11/06/19 06:15 Propofol (Diprivan 20 Ml) Confirm Administered Dose 200 mg .ROUTE .STK-MED ONE Stop: 11/06/19 07:30 Ropivacaine (Naropin 0.5%) Confirm Administered Dose 30 ml .ROUTE .STK-MED ONE Stop: 11/06/19 06:12 - Exam General: Reports: Alert, Oriented, Cooperative, No Acute Distress, Other (Morbidly Obese) HEENT: Reports: Pupils Equal, Pupils Reactive, EOMI, Mucous Membr. Moist/[place] Neck: Reports: Supple Lungs: Reports: Clear to Auscultation, Normal Respiratory Effort Cardiovascular: Reports: Regular Rate, Regular Rhythm GI/Abdominal Exam: Normal Bowel Sounds, Soft, Non-Tender, No Organomegaly, No Distention, Other (Obese) (Female) Exam: Other (No suprapubic tenderness) Rectal (Female) Exam: Deferred Back Exam: Reports: Normal Inspection, CVA Tenderness (L), Decreased Range of Motion Extremities: Normal Range of Motion (left lower extremity), Non-Tender, No Pedal Edema, Limited Range of Motion (right lower extremity), Other (contracture on right arm; right leg with cast) Skin: Reports: Warm, Dry, Intact Neurological: Denies: Normal Gait Psy/Mental Status: Reports: Alert, Normal Affect, Normal Mood
[2019-11-06] MEDS ORDERED: cefTRIAXone 1 GM in Sodium Chloride 0.9% 100 ML IV ONE (09:45)
[2019-11-06] MEDS: Calcium Carbonate/Vitamin D3 600 MG-200 Units Tab PO SCH (09:45)
[2019-11-06] MEDS: Pantoprazole 40 MG Tab.CR PO SCH (09:45)
[2019-11-06] MEDS: busPIRone 15 MG Tab PO SCH (09:46)
[2019-11-06] MEDS: Aspirin 325 MG Tab.EC PO SCH (09:46)
[2019-11-06] MEDS: Propranolol 10 MG Tab PO SCH (09:46)
[2019-11-06] MEDS: Potassium Chloride 20 MEQ Tab.ER PO SCH (09:47)
[2019-11-06] MEDS: Amantadine 100 MG Cap PO SCH (09:48)
[2019-11-06] MEDS: Nystatin Topical Powder 15 GM Bottle TOP SCH (09:48)
[2019-11-06] MEDS: Gabapentin 600 MG Tab PO SCH (12:06)
[2019-11-06] MEDS: levETIRAcetam 500 MG Tab PO SCH (12:06)
[2019-11-06] MEDS: Baclofen 10 MG Tab PO SCH ×2 (12:06)
[2019-11-06 12:48] VITALS: BP 142/89; PULSE 95
== END 2019-11-06 13:15 | DRG 563 ==
LOC: JD.ED 09:25 → JD.MS 11:43
PROVIDERS: ADMIT Internal Medicine; ATTEND Internal Medicine
PROC: 3E0T3BZ Introduction of Anesthetic Agent into Peripheral Nerves and Plexi, Percutaneous Approach (ICD-10-PCS; principal; 2019-11-06)
PROC: 3E0T33Z Introduction of Anti-inflammatory into Peripheral Nerves and Plexi, Percutaneous Approach (ICD-10-PCS; 2019-11-06)
DX: S82.244A Nondisplaced spiral fracture of shaft of right tibia, initial encounter for closed fracture (principal); W06.XXXA Fall from bed, initial encounter; N39.0 Urinary tract infection, site not specified; Z68.41 Body mass index [BMI] 40.0-44.9, adult; F79 Unspecified intellectual disabilities; Z20.828 Contact with and (suspected) exposure to other viral communicable diseases; I69.351 Hemiplegia and hemiparesis following cerebral infarction affecting right dominant side; R26.9 Unspecified abnormalities of gait and mobility; S82.831A Other fracture of upper and lower end of right fibula, initial encounter for closed fracture; E66.01 Morbid (severe) obesity due to excess calories; H54.7 Unspecified visual loss; E55.9 Vitamin D deficiency, unspecified; G40.909 Epilepsy, unspecified, not intractable, without status epilepticus; Z87.891 Personal history of nicotine dependence; Z88.2 Allergy status to sulfonamides; Z79.82 Long term (current) use of aspirin; Z79.899 Other long term (current) drug therapy; Z11.59 Encounter for screening for other viral diseases
CPT/HCPCS: 29105; 36415; 73590; 96372; 99285; J1170; 01420; 51701; 64450; 70450; 70450-26; 76000; 76000-26; 80048; 80053; 81001; 82306; 82550; 84703; 85025; 85610; 87086; 87088; 87186; 97110-GO; 97110-GP; 97162-GP; 97167-GO; 97530-GO; 99284; A9270-GY; J0696; J1100; J1885; J2250; J2704; J2795; J3010; J7050; U0002

== ENCOUNTER 2024-04-17 15:36 | Emergency (ER) | payer MEDICARE ==
[2024-04-17] MEDS: Acetaminophen 325 MG Tab PO ONE (18:28)
[2024-04-17] MEDS: traMADol 50 MG Tab PO ONE (18:29)
[2024-04-17 19:00] VITALS: BP 129/85; PULSE 80
== END 2024-04-17 19:00 ==
LOC: JD.ED 15:36
DX: M19.071 Primary osteoarthritis, right ankle and foot (principal); E66.9 Obesity, unspecified; Z86.73 Personal history of transient ischemic attack (TIA), and cerebral infarction without residual deficits; Z86.16 Personal history of COVID-19; Z88.2 Allergy status to sulfonamides; Z79.82 Long term (current) use of aspirin; Z79.899 Other long term (current) drug therapy; Z68.42 Body mass index [BMI] 45.0-49.9, adult
CPT/HCPCS: 73610; 99283; A9270